=== PATIENT | female | born 1935 | race Caucasian/White ===

== ENCOUNTER 2019-03-20 21:09 | Inpatient (IN) ==
[2019-03-20] MEDS ORDERED: cloNIDine 0.1 MG TABLET PO STA (22:49)
[2019-03-20] MEDS ORDERED: cloNIDine 0.1 MG TABLET ONE (22:50)
[2019-03-21 00:41] LABS: Basophils # 0.1 10*3/uL (0.0-0.2); Eosinophils # 0.1 10*3/uL (0.0-0.87); Eosinophils % 1.7 % (0.00-10.9); Hematocrit 43.2 VOL% (35.7-47.0); Hemoglobin 13.8 GM/DL (12.0-16.0); Immature Granulocytes % 0.4 %; Immature Granulocytes Absolute 0.03 #; Lymphocytes # 1.4 10*3/uL (1.4-4.0); Lymphocytes % 16.8 % (21.3-54.2); Mean Corpuscular HGB Conc 31.9 GM/DL (32-36); Mean Corpuscular Volume 98.9 FL (87-102); Mean Platelet Volume 9.8 FL (9.6-12.0); Monocytes % 7.6 % (1.7-12.7); Neutrophils % 72.5 % (38.7-73.9); Platelet Count 215 T/CUMM (130-400); Red Blood Count 4.37 MC/CUMM (3.8-5.5); Red Cell Distribution Width 13.5 % (9.3-17.3); White Blood Count 8.3 T/CUMM (4-12)
[2019-03-21] MEDS ORDERED: ACETAMINOPHEN 325 MG TABLET PO PRN (05:00)
[2019-03-21] MEDS ORDERED: DOCUSATE SODIUM 100 MG CAPSULE PO PRN (05:00)
[2019-03-21] MEDS ORDERED: ONDANSETRON 4 MG/2 ML VIAL IV PRN (05:00)
[2019-03-21] MEDS: SODIUM CHLORIDE 0.9% 1,000 ML IV SCH ×2 (05:29→12:00)
[2019-03-21 05:54] LABS: Basophils # 0.1 10*3/uL (0.0-0.2); Basophils % 1.3 % (0.0-0.8); Eosinophils # 0.1 10*3/uL (0.0-0.87); Eosinophils % 2.1 % (0.00-10.9); Hematocrit 39.1 VOL% (35.7-47.0); Hemoglobin 12.5 GM/DL (12.0-16.0); Immature Granulocytes % 0.2 %; Immature Granulocytes Absolute 0.01 #; Lymphocytes # 1.2 10*3/uL (1.4-4.0); Lymphocytes % 22.6 % (21.3-54.2); Mean Corpuscular Volume 98.5 FL (87-102); Mean Platelet Volume 10.1 FL (9.6-12.0); Monocytes % 8.3 % (1.7-12.7); Neutrophils % 65.5 % (38.7-73.9); Platelet Count 210 T/CUMM (130-400); Red Blood Count 3.97 MC/CUMM (3.8-5.5); Red Cell Distribution Width 13.4 % (9.3-17.3); White Blood Count 5.3 T/CUMM (4-12)
[2019-03-21 06:08] LABS: Calcium 8.7 MG/DL (8.5-10.1); Osmolality,Calculated 290.7 MOS/KG (273-304)
[2019-03-21] MEDS: hydrALAZINE 20 MG/1 ML VIAL IV PRN ×2 (10:30→17:10)
[2019-03-21] MEDS ORDERED: PANTOPRAZOLE 40 MG VIAL IV ONE (11:01)
[2019-03-21] MEDS: POTASSIUM CHLORIDE RIDER 10 MEQ in PREMIX 1 EACH IV PRN ×6 (12:00→20:40)
[2019-03-21 12:03] LABS: Hemoglobin 13.3 GM/DL (12.0-16.0)
[2019-03-21 12:20] LABS: Calcium 8.2 MG/DL (8.5-10.1); Osmolality,Calculated 286.1 MOS/KG (273-304)
[2019-03-21 12:43] LABS: ABG HCO3 27.1 MMOL/L (20-26); ABG Oxygen Saturation 97.4 % (95-100); ABG PCO2 37.5 MM HG (35-48); ABG PH 7.461 (7.35-7.45); ABG PO2 92.1 MM HG (80-95); ABG TCO2 22.8 MMOL/L (23-27)
[2019-03-21] MEDS: methylPREDNISolone SOD SUC 40 MG/1 ML VIAL IV SCH ×2 (13:19→19:39)
[2019-03-21] MEDS ORDERED: LIDOCAINE 1% 20 ML VIAL MISC INJ ONE (13:30)
[2019-03-21] MEDS ORDERED: LIDOCAINE 2% VISCOUS 100 ML BOTTLE SWISH/SPIT ONE (13:30)
[2019-03-21] MEDS ORDERED: MIDAZOLAM 2 MG/2 ML VIAL IV ONE (13:30)
[2019-03-21] MEDS ORDERED: LIDOCAINE 2% 20 ML VIAL RESP TX ONE (13:30)
[2019-03-21 14:31] LABS: Apearance,Urine CLEAR (Clear); Bilirubin,Urine Negative (Negative); Blood, Urine Small mg/dL (Negative); Glucose,Urine (UA) Negative (Negative); Ketones,Urine Negative (Negative); Nitrite,Urine Negative (Negative); Protein,Urine Negative; RBC,Urine 8 /HPF (0-4); Squamous Epithelial Cell,Urine Occasional /HPF (0-10); Urine Color Colorless (Yellow); Urine Specific Gravity 1.006 (1.001-1.035); Urine Urobilinogen < 2.0 EU/DL (0.2-1.0); WBC,Urine <1 /HPF (0-6)
[2019-03-21 18:53] LABS: Hematocrit 44.2 VOL% (35.7-47.0); Hemoglobin 14.1 GM/DL (12.0-16.0)
[2019-03-22] MEDS: methylPREDNISolone SOD SUC 40 MG/1 ML VIAL IV SCH ×3 (04:16→20:42)
[2019-03-22] MEDS: hydrALAZINE 20 MG/1 ML VIAL IV PRN (06:11)
[2019-03-22 07:30] LABS: Basophils % 0.1 % (0.0-0.8); Hematocrit 42.9 VOL% (35.7-47.0); Hemoglobin 13.9 GM/DL (12.0-16.0); Immature Granulocytes % 0.3 %; Immature Granulocytes Absolute 0.03 #; Lymphocytes # 0.5 10*3/uL (1.4-4.0); Lymphocytes % 6.1 % (21.3-54.2); Mean Corpuscular HGB Conc 32.4 GM/DL (32-36); Mean Corpuscular Volume 97.3 FL (87-102); Neutrophils % 92.5 % (38.7-73.9); Platelet Count 233 T/CUMM (130-400); Red Blood Count 4.41 MC/CUMM (3.8-5.5); Red Cell Distribution Width 13.6 % (9.3-17.3); White Blood Count 8.7 T/CUMM (4-12)
[2019-03-22 07:44] LABS: Calcium 8.6 MG/DL (8.5-10.1); Osmolality,Calculated 287.4 MOS/KG (273-304)
[2019-03-22] MEDS: carvediloL 3.125 MG TABLET PO SCH ×2 (09:13→20:42)
[2019-03-22] MEDS: PANTOPRAZOLE 40 MG VIAL IV SCH (09:13)
[2019-03-23] MEDS: methylPREDNISolone SOD SUC 40 MG/1 ML VIAL IV SCH ×2 (04:12→12:29)
[2019-03-23 05:15] LABS: Basophils % 0.1 % (0.0-0.8); Hematocrit 39.7 VOL% (35.7-47.0); Hemoglobin 12.7 GM/DL (12.0-16.0); Immature Granulocytes % 0.4 %; Immature Granulocytes Absolute 0.04 #; Lymphocytes # 0.7 10*3/uL (1.4-4.0); Mean Corpuscular Volume 97.8 FL (87-102); Monocytes % 2.8 % (1.7-12.7); Neutrophils % 89.7 % (38.7-73.9); Platelet Count 211 T/CUMM (130-400); Red Blood Count 4.06 MC/CUMM (3.8-5.5); Red Cell Distribution Width 13.6 % (9.3-17.3); White Blood Count 9.3 T/CUMM (4-12)
[2019-03-23 05:34] LABS: Calcium 8.3 MG/DL (8.5-10.1); Osmolality,Calculated 292.3 MOS/KG (273-304)
[2019-03-23] MEDS ORDERED: carvediloL 3.125 MG TABLET PO SCH (07:16)
[2019-03-23] MEDS: PANTOPRAZOLE 40 MG VIAL IV SCH (08:30)
[2019-03-23 20:09] VITALS: BP 136/66
== END 2019-03-23 15:10 | disposition home health service (06) | DRG 204 ==
LOC: EDBD → EDUNIT# → N.ED 21:09 → N.EDINP 21:09 → N.3E 03-21 02:30 → N.CC 03-21 10:55 → SUATTDRO 03-21 12:50 → N.5E 03-22 10:34
PROVIDERS: ADMIT Internal Medicine; ATTEND Family Medicine

== ENCOUNTER 2019-03-27 02:00 | Observation (INO) ==
[2019-03-27] MEDS ORDERED: ONDANSETRON 4 MG/2 ML VIAL IV PRN (03:54)
[2019-03-27] MEDS ORDERED: ACETAMINOPHEN 325 MG TABLET PO PRN (03:54)
[2019-03-27 06:57] LABS: Basophils % 0.2 % (0.0-0.8); Eosinophils # 0.1 10*3/uL (0.0-0.87); Eosinophils % 0.6 % (0.00-10.9); Hematocrit 38.6 VOL% (35.7-47.0); Hemoglobin 12.3 GM/DL (12.0-16.0); Immature Granulocytes % 0.5 %; Immature Granulocytes Absolute 0.05 #; Lymphocytes # 1.7 10*3/uL (1.4-4.0); Lymphocytes % 17.5 % (21.3-54.2); Mean Corpuscular HGB Conc 31.9 GM/DL (32-36); Mean Corpuscular Volume 98.5 FL (87-102); Mean Platelet Volume 10.2 FL (9.6-12.0); Monocytes % 8.1 % (1.7-12.7); Neutrophils % 73.1 % (38.7-73.9); Platelet Count 208 T/CUMM (130-400); Red Blood Count 3.92 MC/CUMM (3.8-5.5); Red Cell Distribution Width 13.2 % (9.3-17.3); White Blood Count 9.9 T/CUMM (4-12)
[2019-03-27 07:19] LABS: Calcium 8.1 MG/DL (8.5-10.1)
[2019-03-27 07:22] LABS: Risk Ratio 3.43; VLDL CHOLESTEROL 18.6 MG/DL
[2019-03-27] MEDS ORDERED: POTASSIUM CHLORIDE 20 MEQ TABLET PO ONE (08:08)
[2019-03-27] MEDS ORDERED: ALBUTEROL 2.5 MG/3 ML NEB RESP TX PRN (08:11)
[2019-03-27] MEDS: CEFUROXIME 250 MG TABLET PO SCH ×2 (08:47→21:06)
[2019-03-27] MEDS: GABAPENTIN 100 MG CAPSULE PO SCH ×2 (08:47→21:06)
[2019-03-27] MEDS: LISINOPRIL 5 MG TABLET PO SCH (08:47)
[2019-03-27] MEDS: busPIRone 5 MG TABLET PO SCH ×2 (08:48→21:06)
[2019-03-27] MEDS: carvediloL 6.25 MG TABLET PO SCH ×2 (08:48→16:46)
[2019-03-27] MEDS ORDERED: predniSONE 10 MG TABLET PO ONE (09:00)
[2019-03-27] MEDS ORDERED: PANTOPRAZOLE 40 MG TABLET PO SCH (09:00)
[2019-03-27] MEDS ORDERED: hydrALAZINE 20 MG/1 ML VIAL IV PRN (10:40)
[2019-03-27 10:42] LABS: Basophils % 0.2 % (0.0-0.8); Eosinophils # 0.1 10*3/uL (0.0-0.87); Eosinophils % 0.7 % (0.00-10.9); Hematocrit 40.8 VOL% (35.7-47.0); Immature Granulocytes % 0.3 %; Immature Granulocytes Absolute 0.03 #; Lymphocytes # 0.9 10*3/uL (1.4-4.0); Lymphocytes % 8.3 % (21.3-54.2); Mean Corpuscular HGB Conc 31.9 GM/DL (32-36); Mean Corpuscular Volume 98.8 FL (87-102); Mean Platelet Volume 10.1 FL (9.6-12.0); Monocytes % 6.2 % (1.7-12.7); Neutrophils % 84.3 % (38.7-73.9); Platelet Count 220 T/CUMM (130-400); Red Blood Count 4.13 MC/CUMM (3.8-5.5); Red Cell Distribution Width 13.1 % (9.3-17.3)
[2019-03-27 14:41] LABS: Hemoglobin 12.4 GM/DL (12.0-16.0)
[2019-03-27 18:47] LABS: Hematocrit 35.8 VOL% (35.7-47.0); Hemoglobin 11.6 GM/DL (12.0-16.0)
[2019-03-27] MEDS: PANTOPRAZOLE 40 MG TABLET PO SCH (21:06)
[2019-03-27 22:36] LABS: Hematocrit 37.2 VOL% (35.7-47.0); Hemoglobin 11.7 GM/DL (12.0-16.0)
[2019-03-28 05:18] LABS: PT Patient Result 10.7 SECS (9.6-12.2); Partial Thromboplastin Time 25.5 SECS (20.8-36.0)
[2019-03-28 05:21] LABS: Basophils % 0.2 % (0.0-0.8); Eosinophils # 0.1 10*3/uL (0.0-0.87); Eosinophils % 1.5 % (0.00-10.9); Hemoglobin 12.4 GM/DL (12.0-16.0); Immature Granulocytes % 0.4 %; Immature Granulocytes Absolute 0.04 #; Lymphocytes # 1.8 10*3/uL (1.4-4.0); Lymphocytes % 19.6 % (21.3-54.2); Mean Corpuscular HGB Conc 31.8 GM/DL (32-36); Mean Platelet Volume 10.6 FL (9.6-12.0); Monocytes % 9.8 % (1.7-12.7); Neutrophils % 68.5 % (38.7-73.9); Platelet Count 206 T/CUMM (130-400); Red Blood Count 3.94 MC/CUMM (3.8-5.5); Red Cell Distribution Width 13.2 % (9.3-17.3); White Blood Count 8.9 T/CUMM (4-12)
[2019-03-28 05:39] LABS: Calcium 8.3 MG/DL (8.5-10.1); Osmolality,Calculated 287.1 MOS/KG (273-304)
[2019-03-28 08:07] LABS: Troponin I 0.028 NG/ML (0.00-0.045)
[2019-03-28] MEDS: CEFUROXIME 250 MG TABLET PO SCH ×2 (08:52→20:58)
[2019-03-28] MEDS: carvediloL 6.25 MG TABLET PO SCH ×2 (08:52→17:20)
[2019-03-28] MEDS: PANTOPRAZOLE 40 MG TABLET PO SCH ×2 (08:52→20:58)
[2019-03-28] MEDS: busPIRone 5 MG TABLET PO SCH ×2 (08:52→20:58)
[2019-03-28] MEDS: LISINOPRIL 5 MG TABLET PO SCH (08:52)
[2019-03-28] MEDS: GABAPENTIN 100 MG CAPSULE PO SCH ×2 (08:52→20:58)
[2019-03-28] MEDS: NICOTINE 21 MG/24 HR PATCH TRANSDERM SCH (11:24)
[2019-03-28] MEDS: methylPREDNISolone SOD SUC 40 MG/1 ML VIAL IV SCH ×2 (17:20→23:29)
[2019-03-28] MEDS: ZINC OXIDE PASTE 113 GM TUBE TOP SCH (20:58)
[2019-03-29 04:34] LABS: Basophils % 0.1 % (0.0-0.8); Hematocrit 41.7 VOL% (35.7-47.0); Hemoglobin 13.3 GM/DL (12.0-16.0); Immature Granulocytes % 0.3 %; Immature Granulocytes Absolute 0.02 #; Lymphocytes # 0.5 10*3/uL (1.4-4.0); Lymphocytes % 7.4 % (21.3-54.2); Mean Corpuscular HGB Conc 31.9 GM/DL (32-36); Mean Corpuscular Volume 98.3 FL (87-102); Mean Platelet Volume 11.1 FL (9.6-12.0); Monocytes % 0.9 % (1.7-12.7); Neutrophils % 91.3 % (38.7-73.9); Platelet Count 197 T/CUMM (130-400); Red Blood Count 4.24 MC/CUMM (3.8-5.5); White Blood Count 6.9 T/CUMM (4-12)
[2019-03-29 04:56] LABS: Hypochromasia 1+; Lymphocytes 6 % (20-55); Platelet Estimate Adequate; Segmented Neutrophils 93 % (50-85); Total Cells Counted 100
[2019-03-29 04:57] LABS: Calcium 8.2 MG/DL (8.5-10.1); Osmolality,Calculated 285.5 MOS/KG (273-304)
[2019-03-29] MEDS: carvediloL 6.25 MG TABLET PO SCH ×2 (08:06→18:09)
[2019-03-29] MEDS: methylPREDNISolone SOD SUC 40 MG/1 ML VIAL IV SCH ×2 (08:07→18:08)
[2019-03-29] MEDS: busPIRone 5 MG TABLET PO SCH (10:02)
[2019-03-29] MEDS: PANTOPRAZOLE 40 MG TABLET PO SCH (10:02)
[2019-03-29] MEDS: LISINOPRIL 5 MG TABLET PO SCH (10:02)
[2019-03-29] MEDS: CEFUROXIME 250 MG TABLET PO SCH (10:02)
[2019-03-29] MEDS: NICOTINE 21 MG/24 HR PATCH TRANSDERM SCH (10:02)
[2019-03-29] MEDS: ZINC OXIDE PASTE 113 GM TUBE TOP SCH (10:03)
[2019-03-29] MEDS: GABAPENTIN 100 MG CAPSULE PO SCH (10:03)
[2019-03-29 16:09] VITALS: BP 113/79
== END 2019-03-29 17:40 | disposition home health service (06) ==
LOC: N.TELES → SUATTDRO 03:13
PROVIDERS: ADMIT Internal Medicine; ATTEND Internal Medicine Nephrology